=== PATIENT | male | born 1960 | race Caucasian/White ===

== ENCOUNTER 2019-10-17 09:11 | Observation (INO) ==
[2019-10-17] MEDS ORDERED: Isovue-370 500 ML BOTTLE IVP ONE (09:21)
[2019-10-17] MEDS ORDERED: 0.9 % Sodium Chloride 1,000 ML IVC ONE (09:22)
[2019-10-17 09:47] LABS: Hematocrit 36.6 % (37.5-50.1); Hemoglobin 12.2 g/dL (12.9-16.9); Mean Corpuscular HGB Conc 33.3 g/dL (31.6-35.5); Mean Corpuscular Hemoglobin 29.1 pg (28.0-33.3); Mean Corpuscular Volume 87.4 fL (83.0-100.0); Mean Platelet Volume 10.1 fL (9.4-12.4); Monocytes # 0.3 K/mcL (0.0-1.3); Platelet Count 155 K/mcL (140-400); Red Blood Count 4.19 M/mcL (4.19-5.50); Red Cell Distribution Width 15.5 % (11.5-14.5); White Blood Count 2.5 K/mcL (4.3-11.1)
[2019-10-17 10:04] LABS: Neutrophils # 1.3 K/mcL (1.6-8.9)
[2019-10-17 10:05] LABS: Platelet Estimate Normal (Normal)
[2019-10-17 10:16] LABS: Alanine Aminotransferase 173 Units/L (7-52); Albumin 3.3 g/dL (3.5-5.7); Albumin/Globulin Ratio 1.3 (1.1-2.2); Alkaline Phosphatase 187 Units/L (34-104); Aspartate Amino Transferase 76 Units/L (13-39); BUN/Creatinine Ratio 13 (6-26); Bilirubin,Total 0.9 mg/dL (0.3-1.0); Blood Urea Nitrogen 9 mg/dL (6-20); Calcium 8.5 mg/dL (8.6-10.3); Carbon Dioxide 22 mEq/L (23-29); Chloride 97 mEq/L (98-107); Globulin 2.5 g/dL (2.4-3.5); Glucose 92 mg/dL (70-105); Lipase 13 Units/L (11-82); Osmolality,Calculated 276 (280-300); Potassium 3.8 mEq/L (3.5-5.1); Sodium 134 mEq/L (136-145); Total Protein 5.8 g/dL (6.4-8.9); Troponin I < 0.03 ng/mL (< 0.04); eGFR For African Americans > 60 (> 60); eGFR For Non-African Americans > 60 (> 60)
[2019-10-17] MEDS ORDERED: Naloxone 0.4 MG/ML INJ IVP PRN (13:56)
[2019-10-17] MEDS ORDERED: Ondansetron 4 MG/2 ML VIAL IVP PRN (14:10)
[2019-10-17] MEDS ORDERED: Fluticasone Propionate Nasal 50 MCG/SPRAY BOTTLE NS PRN (14:58)
[2019-10-17 15:11] LABS: Bilirubin,Urine Moderate (Negative); Blood,Urine Negative (Negative); Clarity,Urine Clear (Clear); Color,Urine Yellow (Yellow); Glucose,Urine (UA) Normal (Normal); Ketones,Urine 80 mg/dL (Negative); Leukocyte Esterase,Urine Negative (Negative); Nitrite,Urine Negative (Negative); Protein,Urine Trace mg/dL (Neg-Trace); Specific Gravity,Urine > 1.030 (1.010-1.025); Urobilinogen,Urine Normal (Normal)
[2019-10-17] MEDS ORDERED: Prochlorperazine 10 MG/2 ML VIAL IVP ONE (19:00)
[2019-10-17] MEDS: Pantoprazole 40 MG VIAL IVP SCH (19:39)
[2019-10-17] MEDS: Ringers Solution, Lactated 1,000 ML IVC SCH (19:39)
[2019-10-17] MEDS ORDERED: Mirtazapine 15 MG TABLET PO SCH (21:00)
[2019-10-18 01:36] LABS: Basophils % 0.5 %; Eosinophils % 0.5 %; Hematocrit 30.3 % (37.5-50.1); Immature Granulocytes % 2.4 % (0-4); Lymphocytes # 0.9 K/mcL (0.6-4.6); Lymphocytes % 44.9 %; Mean Corpuscular Hemoglobin 29.9 pg (28.0-33.3); Mean Corpuscular Volume 85.6 fL (83.0-100.0); Mean Platelet Volume 10.3 fL (9.4-12.4); Monocytes # 0.4 K/mcL (0.0-1.3); Monocytes % 18.5 %; Neutrophils # 0.7 K/mcL (1.6-8.9); Platelet Count 157 K/mcL (140-400); Red Blood Count 3.54 M/mcL (4.19-5.50); Segmented Neutrophils % 33.2 %; White Blood Count 2.1 K/mcL (4.3-11.1)
[2019-10-18 01:37] LABS: Hemoglobin 10.6 g/dL (12.9-16.9)
[2019-10-18 01:54] LABS: Platelet Estimate Slight Decrease (Normal); Reactive Lymphocytes Present (Not Present)
[2019-10-18 01:56] LABS: Alanine Aminotransferase 138 Units/L (7-52); Albumin 2.7 g/dL (3.5-5.7); Albumin/Globulin Ratio 1.4 (1.1-2.2); Alkaline Phosphatase 127 Units/L (34-104); Aspartate Amino Transferase 50 Units/L (13-39); BUN/Creatinine Ratio 10 (6-26); Bilirubin,Total 0.7 mg/dL (0.3-1.0); Blood Urea Nitrogen 6 mg/dL (6-20); Calcium 8.1 mg/dL (8.6-10.3); Carbon Dioxide 19 mEq/L (23-29); Chloride 101 mEq/L (98-107); Globulin 1.9 g/dL (2.4-3.5); Glucose 71 mg/dL (70-105); Osmolality,Calculated 278 (280-300); Potassium 3.7 mEq/L (3.5-5.1); Sodium 136 mEq/L (136-145); Total Protein 4.6 g/dL (6.4-8.9); eGFR For African Americans > 60 (> 60); eGFR For Non-African Americans > 60 (> 60)
[2019-10-18] MEDS: Ringers Solution, Lactated 1,000 ML IVC SCH ×2 (02:59→12:12)
[2019-10-18] MEDS ORDERED: Prochlorperazine 10 MG/2 ML VIAL IVP PRN (03:10)
[2019-10-18] MEDS: Pantoprazole 40 MG VIAL IVP SCH ×2 (05:12→17:05)
[2019-10-18] MEDS ORDERED: Aspirin Enteric Coated 81 MG Tablet PO SCH (09:00)
[2019-10-18] MEDS ORDERED: Lidocaine -MPF 2% 2 ML VIAL ONE (10:29)
[2019-10-18] MEDS ORDERED: *HR* Propofol 200 MG/20 ML VIAL IVP ONE (10:29)
[2019-10-18 11:54] VITALS: BP 114/72
== END 2019-10-18 17:39 | disposition short-term general hospital (02) ==
LOC: EMEROOARM 09:11 → 3BNU 09:11
PROVIDERS: ADMIT Pharmacist; ATTEND Pharmacist

== ENCOUNTER 2020-09-17 06:09 | Observation (INO) ==
[2020-09-17] MEDS ORDERED: Clindamycin 900 MG/50 ML 900 MG/50 ML IV.SOLN IVPB ONE (06:26)
[2020-09-17] MEDS ORDERED: Ringers Solution, Lactated 1,000 ML IVC SCH ×2 (06:30→09:41)
[2020-09-17] MEDS ORDERED: CeFAZolin Syr 2,000MG/20 ML 2,000 MG/20 ML SYRINGE IVPB ONE (06:30)
[2020-09-17] MEDS ORDERED: *HR* Propofol 200 MG/20 ML VIAL IVP ONE (06:38)
[2020-09-17] MEDS ORDERED: Lidocaine -MPF 2% 2 ML VIAL ONE (06:45)
[2020-09-17] MEDS ORDERED: *HR* Succinylcholine 200 MG/10 ML VIAL IVP ONE (06:45)
[2020-09-17] MEDS ORDERED: Ondansetron 4 MG/2 ML VIAL ONE (06:45)
[2020-09-17] MEDS ORDERED: Lidocaine HCL 4 ML Topical Solution (Laryng-O-Jet Kit Sterile Pak) TP ONE (06:45)
[2020-09-17] MEDS ORDERED: *HR* Midazolam HCl 2 MG/2 ML VIAL ONE (06:46)
[2020-09-17] MEDS ORDERED: *HR* FentaNYL (PF) 100 MCG/2 ML VIAL ONE (06:46)
[2020-09-17] MEDS ORDERED: Famotidine 20 MG/2 ML VIAL IVP ONE (06:57)
[2020-09-17] MEDS ORDERED: Acetaminophen IV 1,000 MG/100 ML BAG IVPB ONE (06:58)
[2020-09-17] MEDS ORDERED: Vancomycin 1,000 MG VIAL ONE (07:01)
[2020-09-17] MEDS ORDERED: Ethanol\\Acetic Acid\\Na Ace\\Ben 1,000 ML IRRIG.SOLN IR ONE (07:01)
[2020-09-17] MEDS ORDERED: Ropivacaine/PF 0.5% 30 ML VIAL ONE (07:26)
[2020-09-17] MEDS ORDERED: ROPIVACAINE/PF/NS 0.25% 1 EACH SYRINGE INTRAART ONE (07:26)
[2020-09-17] MEDS ORDERED: Ondansetron 4 MG/2 ML VIAL IVP PRN ×2 (07:44→09:41)
[2020-09-17] MEDS ORDERED: *HR* OxyCODONE Immed Rel 5 MG TABLET PO PRN ×2 (07:44→09:41)
[2020-09-17] MEDS ORDERED: Povidone-Iodine 45 ML, Sodium Chloride IRRigation 1,000 ML IR ONE (07:45)
[2020-09-17 09:27] LABS: Hematocrit 35.4 % (37.5-50.1); Hemoglobin 11.1 g/dL (12.9-16.9)
[2020-09-17] MEDS ORDERED: D5% in Water 1,000 ML IVC PRN (09:41)
[2020-09-17] MEDS ORDERED: Multivit/Ca/Min/Fe/FA 1 TAB TABLET PO SCH (09:41)
[2020-09-17] MEDS ORDERED: MEDICINAL MARIJUANA IH SCH (09:41)
[2020-09-17] MEDS ORDERED: NON-FORMULARY MEDICATION 1 EACH EACH (Potassium 99 MG) PO SCH (09:41)
[2020-09-17] MEDS ORDERED: Dextrose Gel 15 GM/37.5 ML TUBE PO PRN ×2 (09:41)
[2020-09-17] MEDS ORDERED: MOM Conc 10 ML UD.LIQ PO PRN (09:41)
[2020-09-17] MEDS ORDERED: Naloxone 0.4 MG/ML INJ IVP PRN (09:41)
[2020-09-17] MEDS ORDERED: *HR* OxyCODONE/APAP 5/325 TABLET PO PRN (09:41)
[2020-09-17] MEDS ORDERED: Fluticasone Propionate Nasal 50 MCG/SPRAY BOTTLE NS PRN (09:41)
[2020-09-17] MEDS ORDERED: Sennosides 8.6 MG TABLET PO PRN (09:41)
[2020-09-17] MEDS ORDERED: *HR* Dextrose 50 % in Water (Vial) 50 ML VIAL IVP PRN (09:41)
[2020-09-17] MEDS: Insulin LISPRO 300 UNITS/3 ML VIAL SUBQ SCH ×2 (11:46→13:03)
[2020-09-17] MEDS ORDERED: *HR* Enoxaparin 30 MG/0.3 ML SYRINGE SQ SCH ×3 (12:10→18:00)
[2020-09-17] MEDS ORDERED: CeFAZolin 2 GM/120 ML BAG IVPB SCH ×3 (12:30→16:00)
[2020-09-17 12:53] VITALS: BP 151/91
[2020-09-17] MEDS ORDERED: Insulin LISPRO 300 UNITS/3 ML VIAL SUBQ SCH (21:00)
== END 2020-09-17 15:30 | disposition home health service (06) | DRG 483 ==
LOC: SAMDAY 06:09 → INTOOBSV 09:32 → 3NENU 09:32 → UNDODISIN 15:03
PROVIDERS: ADMIT Orthopaedic Surgery; ATTEND Orthopaedic Surgery